=== PATIENT | female | born 1965 | race Caucasian/White ===

== ENCOUNTER 2018-11-06 13:42 | Emergency (ER) | payer OTHER ==
--- NOTE | 2018-11-06 14:10 | ED ---
Psychiatric Complaint - HPI Summary HPI Summary: This pt is a 53 y/o female presenting to [facility] via police on a 9.41 for depression. Pt reports she is having a "meltdown" and "wants to fade away." Pt went to the breakfast cook to get a biopsy from her left ear today at noon when she expressed SI. She endorses SI thoughts but denies SI plan or HI. Pt further states a "feeling of how to get away from the physical pain and mental anguish. " She notes she has been dealing with chronic pain and has not been able to get treated. Pt reports her father recently and has been dealing with her mom's depression as well. Denies any PMHx. Denies tobacco, drug, and alcohol use. - History Of Current Complaint Chief Complaint: EDMentalHealth Time Seen by Provider: 11/06/18 14:08 Hx Obtained From: Patient Hx Last Menstrual Period: 04/28/2014 Onset/Duration: Lasting Days, Still Present Timing: Days Severity Currently: Moderate Character: Depressed Aggravating Factor(s): Recent Stress Alleviating Factor(s): Nothing Associated Signs And Symptoms: Positive: Confused Has Suicidal: Reports: Thoughts. Denies: With A Plan Has Homicidal: Denies: Thoughts, With A Plan Recent Stressor(s): physical pain - Allergies/Home Medications Allergies/Adverse Reactions: Allergies Allergy/AdvReac Type Severity Reaction Status Date / Time No Known Allergies Allergy Verified 11/06/18 14:07 Home Medications: Home Medications Mirtazapine TAB* [Remeron TAB*] 45 mg PO BEDTIME 11/06/18 [History Confirmed ] busPIRone TAB* [Buspar TAB*] 5 mg PO DAILY 11/06/18 [History Confirmed 11/06/18] PMH/Surg Hx/FS Hx/Imm Hx Endocrine/Hematology History: Denies: Hx Diabetes, Hx Thyroid Disease Cardiovascular History: Denies: Hx Congestive Heart Failure, Hx Hypertension Respiratory History: Denies: Hx Asthma, Hx Chronic Obstructive Pulmonary Disease (COPD) GI History: Denies: Hx Ulcer - Surgical History Surgery Procedure, Year, and Place: Breast augmentation in the 80s. Infectious Disease History: No Infectious Disease History: Denies: Hx Hepatitis, Hx Human Immunodeficiency Virus (HIV), Traveled Outside the [place] in Last 30 Days - Family History Family History: Depression. Brother with mental illness. - Social History Alcohol Use: Rare Substance Use Type: Reports: None Smoking Status (MU): Never Smoked Tobacco Review of Systems Negative: Fever, Chills Cardiovascular: Negative Respiratory: Negative Gastrointestinal: Negative Genitourinary: Negative Psychological: Other - POS: SI thoughts Positive: Depressed. Negative: Other - NEG: SI plan, HI All Other Systems Reviewed And Are Negative: Yes Physical Exam - Summary Physical Exam Summary: VITAL SIGNS: Reviewed. GENERAL: Patient is a well-developed and nourished female. Patient is not in any acute respiratory distress. HEAD AND FACE: No signs of trauma. No ecchymosis, hematomas or skull depressions. No sinus tenderness. EYES: PERRLA, EOMI x 2, No injected conjunctiva, no nystagmus. EARS: Hearing grossly intact. Ear canals and tympanic membranes are within normal limits. MOUTH: Oropharynx within normal limits. NECK: Supple, trachea is midline, no adenopathy, no JVD, no carotid bruit, no c- spine tenderness, neck with full ROM. CHEST: Symmetric, no tenderness at palpation LUNGS: Clear to auscultation bilaterally. No wheezing or crackles. CVS: Regular rate and rhythm, S1 and S2 present, no murmurs or gallops appreciated. ABDOMEN: Soft, non-tender. No signs of distention. No rebound, no guarding, and no masses palpated. Bowel sounds are normal. EXTREMITIES: FROM in all major joints, no edema, no cyanosis or clubbing. NEURO: Alert and oriented x 3. No acute neurological deficits. Speech is normal and follows commands. SKIN: Dry and warm Triage Information Reviewed: Yes Vital Signs On Initial Exam: Initial Vitals Temp Pulse Resp BP Pulse Ox 98.3 F 89 16 131/83 99 11/06/18 14:00 11/06/18 14:00 11/06/18 14:00 11/06/18 14:00 11/06/18 14:00 Vital Signs Reviewed: Yes Diagnostics - Vital Signs Vital Signs Temp Pulse Resp BP Pulse Ox 11/06/18 14:00 98.3 F 89 16 131/83 99 - Laboratory Result Diagrams: 11/06/18 14:27 11/06/18 14:27 Lab Statement: Any lab studies that have been ordered have been reviewed, and results considered in the medical decision making process. Re-Evaluation - Re-Evaluation First Eval Re-Evaluation Time: 14:19 Comment: Pt is medically cleared. Course/Dx - Course Assessment/Plan: Pt is a 53 y/o female presenting to [facility] via police on a 9.41 for depression. Pt reports she is having a "meltdown" and "wants to fade away." Pt went to the breakfast cook to get a biopsy from her left ear today at noon when she expressed SI. She endorses SI thoughts but denies SI plan or HI. Pt further states a "feeling of how to get away from the physical pain and mental anguish." She notes she has been dealing with chronic pain and has not been able to get treated. Pt reports her father recently and has been dealing with her mom's depression as well. Denies any PMHx. Test results without any significant abnormalities. Pt is alert and oriented x3. She is hemodynamically stable. Pt is medically cleared. She is waiting for a mental health evaluation. MHE is still pending, therefore pt will be signed out to Dr. Gustafson. - Differential Dx/Clinical Impression Provider Diagnosis: Depression Discharge - Sign-Out/Discharge Documenting (check all that apply): Sign-Out Patient Signing out patient TO: Pete Gustafson - pending MHE - Discharge Plan Condition: Stable Referrals: Antionette Vogel MD [Primary Care Provider] - - Attestation Statements Document Initiated by Scribe: Yes Documenting Scribe: Jami Abarca Provider For Whom Scribe is Documenting (Include Credential): Andrew Flores MD Scribe Attestation: I, Jami Abarca, scribed for Andrew Flores MD on 11/06/18 at 1856. Status of Scribe Document: Ready
--- OUTSIDE RECORDS SUMMARY | 2018-11-06 14:32 | XMS REPORT | Continuity of Care Document ---
:1965 External Reference #:[id number] Author Name Ozziemiller Keisha Care Team Providers Name Role Phone Antionette Vogel MD Primary Care Physician Unavailable Payers Type Date Identification Numbers Payment Provider Subscriber Policy Number: [id number] Alvin Mane Group Number: [id number] [address] PayID: [id number] [place] [address] Advance Directives Description No Information Available Problems Date Description Provider Status Onset: 10/17/2014 Subjective tinnitus Lupe Parry M.D. 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 Tobacco Use Start: Unknown Never Smoked Cigarettes Smoking Status Reviewed: 10/19/18 Never Smoked Cigarettes ETOH Use Rarely consumes wine Tobacco Use Start: Unknown End: Patient is a former Unknown smoker Exercise Exercises regularly Type/Frequency Exercise walks, yoga Type/Frequency Allergies, Adverse Reactions, Alerts Description No Known Drug Allergies Medications Medication Date Status Form Strength Qnty SIG Indications Ordering Provider Cephalexin 10/19/20 Hx Tablets 500mg 21tabs one three L08.9 Kaylee 18 - times Varn, N.P. 10/26/19 daily for 19 7 days Mirtazapine Active Tablets 45mg 90tabs 1 by Antionette 00 mouth Vogel, every day M.D. Fish Oil Active Capsules 1 -2 by Unknown 00 mouth every day Advil Active Capsules 200mg 200caps as needed Unknown 00 Immunizations CPT Code Status Date Vaccine Lot # [id number] Refused 09/25/2017 Influenza Virus Vaccine, Quadrivalent, Split, Preservative Free Vital Signs Date Vital Result Comment 10/19/2018 3:33pm Height 61.9 inches 5'1.90" Weight 115.12 lb Heart Rate 106 /min BP Systolic 142 mmHg BP Diastolic 94 mmHg Body Temperature 98.6 F O2 % BldC Oximetry 100 % BMI (Body Mass Index) 21.1 kg/m2 09/25/2017 11:11am Height 61.9 inches 5'1.90" Weight 117.12 lb Heart Rate 76 /min BP Systolic Sitting 118 mmHg BP Diastolic Sitting 82 mmHg Body Temperature 98.2 F O2 % BldC Oximetry 98 % BMI (Body Mass Index) 21.5 kg/m2 12/28/2016 1:43pm Weight 122.38 lb Heart Rate 76 /min BP Systolic Sitting 104 mmHg BP Diastolic Sitting 58 mmHg Body Temperature 98.6 F O2 % BldC Oximetry 99 % 03/15/2016 2:56pm Height 61.50 inches 5'1.50" Weight 119.00 lb Heart Rate 85 /min BP Systolic Sitting 126 mmHg BP Diastolic Sitting 78 mmHg Body Temperature 98.7 F O2 % BldC Oximetry 99 % BMI (Body Mass Index) 22.1 kg/m2 09/30/2014 2:19pm Height 61.50 inches 5'1.50" Weight 120.00 lb Heart Rate 72 /min BP Systolic Sitting 124 mmHg BP Diastolic Sitting 76 mmHg BMI (Body Mass Index) 22.3 kg/m2 Results Test Date Facility Test Result H/L Range Note Lipid Profile 03/30/2017 [facility] Triglycerides 93 mg/dL N 1 (Trig/Chol/HDL) [address] [place] [address] [phone] Cholesterol 218 mg/dL N 2 HDL Cholesterol 59.4 mg/dL N 3 LDL Cholesterol 140 mg/dL N 4 Laboratory test 03/30/2017 [facility] TSH (Thyroid 2.45 mcIU/mL N 0.34-5.60 [address] Stim Horm) [place] [address] [phone] Laboratory test 03/15/2016 [facility] Cytology SEE RESULT [address] [place] [address] [phone] HPV Rna Ww/Reflex Genotype Negative N Negative 7 Lipid Profile 03/08/2016 [facility] Triglycerides 95 mg/dL N 8 (Trig/Chol/HDL) [address] [place] [address] [phone] Cholesterol 227 mg/dL N 9 HDL Cholesterol 65.4 mg/dL N 10 LDL Cholesterol 143 mg/dL N 11 Comp Metabolic Panel 03/08/2016 [facility] Sodium 138 mmol/L N 133-[address] [place] [address] [phone] Potassium 3.9 mmol/L N 3.5-5.0 Chloride 104 mmol/L N 101-111 Co2 Carbon Dioxide 30 mmol/L N 22-32 Anion Gap 4 mmol/L N 2-11 Glucose 85 mg/dL N 70-100 Blood Urea Nitrogen 11 mg/dL N 6-24 Creatinine 0.77 mg/dL N 0.51-0.95 BUN/Creatinine Ratio 14.3 N 8-20 Calcium 9.2 mg/dL N 8.6-10.3 Total Protein 6.5 g/dL N 6.4-8.9 Albumin 4.2 g/dL N 3.2-5.2 Globulin 2.3 g/dL N 2-4 Albumin/Globulin Ratio 1.8 N 1-3 Total Bilirubin 0.50 mg/dL N 0.2-1.0 Alkaline Phosphatase 44 U/L N 34-104 Alt 12 U/L N 7-52 Ast 12 U/L Low 13-39 Egfr Non- 79.7 N >60 Egfr 102.5 N >60 12 1 Desirable <150 Borderline high 150-199 High 200-499 Very High >500 2 Desirable <200 Borderline high 200-239 High >239 3 Low <40 Desirable: 40-60 High: >60 4 Desirable: <100 mg/dL Near Optimal: 100-129 mg/dL Borderline High: 130-159 mg/dL High: 160-189 mg/dL Very High: >189 mg/dL 5 FASTING 10 HOUR 6 SEE RESULT BELOW Name: ROSALIND MANE : [address]: Lupe Parry MD Acct: [id number] Unit: [id number] AGE: 51 Location: [facility] Re03/15/16 SEX: F Status: REG REF SPEC: [id number] PRUDENCIO: 03/15/16-[address]: Lupe Parry MD REQ: [id number] RECD: 03/16/16 STATUS: SOUT _ ORDERED: IMAGE ANALYSIS, HPV/Thin Prep, HPV 16/18 GENE COMMENTS: [id number] FINAL DIAGNOSIS Negative for Intraepithelial lesion or Malignancy A. Ectocervical/Endocervical Specimen Adequacy: Satisfactory of evaluation Transformation zone component identified Patient Information: HPV: High risk HPV RNA testing regardless of pap results. HPV 16/18 Genotype Reflex Actual Specimen Date: 03/15/16 Post Menopausal?: N Previous Abnormal Pap Smears?:N Date Time Test Result Flag (u) Normal Range 03/15/16 1601 HPV RNA RFLX GE Negative Negative The high-risk HPV types detected by the assay include: 16, 18, 31, 33, 35, 39, 45, 51, 52, 56, 58, 59, 66, and 68. Signed (signature on file) EMMANUEL Lynch (ASCP) 03/17 1519 This Pap test was evaluated with the assistance of the Renew FibrePrep Test Imaging System. Due to cytologic findings at the watershed program manager microscope, comprehensive manual rescreening by a Circular Shear Operator may be required. The Pap Smear is a screening test designed to aid in the detection of premalignant and malignant conditions of the uterine cervix. It is not a diagnostic procedure and should not be used as the sole means of detecting cervical cancer. Both false- positive and false- negative reports do occur. Depending on your risk status, a Pap smear should be obtained and evaluated every 1-3 years. END OF REPORT * ML=Testing performed at Main Lab DEPARTMENT OF PATHOLOGY, [address] [place] [address] Victor Manuel Uriarte M.D. Director [facility] # [id number] 7 The high-risk HPV types detected by the assay include: 16, 18, 31, 33, 35, 39, 45, 51, 52, 56, 58, 59, 66, and 68. 8 Desirable <150 Borderline high 150-199 High 200-499 Very High >500 9 Desirable <200 Borderline high 200-239 High >239 10 Low <40 Desirable: 40-60 High: >60 11 Desirable: <100 mg/dL Near Optimal: 100-129 mg/dL Borderline High: 130-159 mg/dL High: 160-189 mg/dL Very High: >189 mg/dL 12 Because ethnic data is not always readily available, this report includes an eGFR for both -Americans and non- Americans. The National Kidney Disease Education Program (NKDEP) does not endorse the use of the MDRD equation for patients that are not between the ages of 18 and 70, are , have extremes of body size, muscle mass, or nutritional status, or are non- or non-. According to the National Kidney Foundation, irrespective of diagnosis, the stage of the disease is based on the level of kidney function: Stage Description GFR(mL/min/1.73 m(2)) 1 Kidney damage with normal or decreased GFR 90 2 Kidney damage with mild decrease in GFR 60-89 3 Moderate decrease in GFR 30-59 4 Severe decrease in GFR 15-29 5 Kidney failure <15 (or dialysis) Procedures Date Code Description Status 03/22/2017 [id number] Mammogram Completed 10/23/2016 [id number] Colonoscopy Completed 10/23/2015 [id number] Mammogram Completed Encounters Type Date Location Provider Dx Diagnosis Office Visit 09/25/2017 [facility] Antionette Vogel, Z00.00 Encntr for 11:10a Medicine - [place] general adult [place] medical exam w/o abnormal findings F32.89 Other specified depressive episodes L57.0 Actinic keratosis Z12.11 Encounter for screening for malignant neoplasm of colon Office Visit 12/28/2016 1:40p [facility] Antionette F32.89 Other specified Louis - [place] Vogel depressive [place] episodes E78.5 Hyperlipidemia, unspecified Z12.39 Encounter for oth screening for malignant neoplasm of breast Office Visit 03/15/2016 3:00p [facility] Lupe Parry, Z00.00 Encntr for Louis - [place] general adult [place] medical exam w/o abnormal findings Z12.31 Encntr screen mammogram for malignant neoplasm of breast Z12.4 Encounter for screening for malignant neoplasm of cervix E78.5 Hyperlipidemia, unspecified R53.83 Other fatigue I78.1 Nevus, non-neoplastic Office Visit 09/30/2014 2:00p [facility] Lupe Parry, 388.31 Tinnitus Medicine - [place] Subjective [place] V18.19 Family HX Of Other Endocrine And Metabolic Diseases V17.49 Family HX Of Other Cardiovascular Diseases Plan of Treatment Future Appointment(s):10/22/2018 11:50 am - Antionette Vogel M.D. at [facility] Internal Medicine - Ufnurymlm92/27/2019 11:10 am - Antionette Vogel M.D. at [facility] Internal Medicine - Skwyihxym18/28/2018 - Kaylee Ibarra N.P.F32.9 Major depressive disorder, single episode, unspecifiedComments:For your depression: I think you will benefit from counseling. to help you with your anxiety you might consider taking Buspar. This is not a controlled substance, but could be helpful.Referral:Winter Pal LCSW, Social WorkerFollow up:F/U with Dr Vogel on MihrbnC84.4 Disappearance and of family cgjdkoB96.9 Local infection of the skin and subcutaneous tissue, unspeciNew Medication:Cephalexin 500 mg - one three times daily for 7 daysComments:Your left ear looks mildly infected. I have prescribed an antibiotic Cephalexin 500 mg. Take 1 tablet, 3 times daily, for 7 days. You may find applying cool compresses helpful.Referral:Mckayla Galicia MD, Dermatology
--- OUTSIDE RECORDS SUMMARY | 2018-11-06 14:32 | XMS REPORT | Continuity of Care Document ---
:1965 External Reference #:[id number] Author Name Ozziemiller Keisha Care Team Providers Name Role Phone Antionette Vogel MD Primary Care Physician Unavailable Payers Type Date Identification Numbers Payment Provider Subscriber Policy Number: [id number] Alvin Mane Group Number: [id number] [address] PayID: [id number] [place] [address] Advance Directives Description No Information Available Problems Date Description Provider Status Onset: 10/17/2014 Subjective tinnitus Lupe Parry M.D. 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 Tobacco Use Start: Unknown Never Smoked Cigarettes Smoking Status Reviewed: 10/22/18 Never Smoked Cigarettes ETOH Use Rarely consumes wine Tobacco Use Start: Unknown End: Patient is a former Unknown smoker Exercise Exercises regularly Type/Frequency Exercise walks, yoga Type/Frequency Allergies, Adverse Reactions, Alerts Description No Known Drug Allergies Medications Medication Date Status Form Strength Qnty SIG Indications Ordering Provider Buspirone HCL Active Tablets 5mg 30tabs once a day F32.9 Antionette 018 as needed jamaica Vogel M.D. anxiety Cephalexin Hx Tablets 500mg 21tabs one three L08.9 Kaylee 018 - times Varn, N.P. daily for 019 7 days Mirtazapine 0 Active Tablets 45mg 90tabs 1 by mouth Antionette 000 every day Ashly Vogel Advil Active Capsules 200mg 200caps as needed Unknown 000 Fish Oil Hx Capsules 1 -2 by Unknown 000 - mouth every day 018 Immunizations CPT Code Status Date Vaccine Lot # [id number] Refused 09/25/2017 Influenza Virus Vaccine, Quadrivalent, Split, Preservative Free Vital Signs Date Vital Result Comment 10/22/2018 11:37am Height 61.9 inches 5'1.90" Weight 119.00 lb Heart Rate 82 /min BP Systolic Sitting 120 mmHg BP Diastolic Sitting 76 mmHg O2 % BldC Oximetry 99 % BMI (Body Mass Index) 21.8 kg/m2 10/19/2018 3:33pm Height 61.9 inches 5'1.90" Weight [...] Result H/L Range Note Lipid Profile 03/30/2017 [facility] Triglycerides 93 mg/dL N 1 (Trig/Chol/HDL) [address] [place] [address] [phone] Cholesterol 218 mg/dL N 2 HDL Cholesterol 59.4 mg/dL N 3 LDL Cholesterol 140 mg/dL N 4 Laboratory test 03/30/2017 [facility] TSH (Thyroid 2.45 mcIU/mL N 0.34-5.60 [address] Stim Horm) [place] [address] [phone] Laboratory test 03/15/2016 [facility] Cytology SEE RESULT [address] [address] [phone] HPV Rna Ww/Reflex Genotype Negative N Negative 7 Lipid Profile 03/08/2016 [facility] Triglycerides 95 mg/dL N 8 (Trig/Chol/HDL) [address] [place] [address] [phone] Cholesterol 227 mg/dL N 9 HDL Cholesterol 65.4 mg/dL N 10 LDL Cholesterol 143 mg/dL N 11 Comp Metabolic Panel 03/08/2016 [facility] Sodium 138 mmol/L N 133-[address] [place] [address] [phone] Potassium 3.9 mmol/L N 3.5-5.0 Chloride 104 [...] [address]: Lupe Parry MD Acct: [id number] Unit: [id number] AGE: 51 Location: [facility] Re03/15/16 SEX: F Status: REG REF SPEC: [id number] PRUDENCIO: 03/15/16-1601 [facility] DR: Lupe Parry MD REQ: [id number] RECD: 03/16/16 STATUS: SOUT _ ORDERED: IMAGE ANALYSIS, HPV/Thin Prep, HPV 16/18 GENE COMMENTS: [id number] FINAL DIAGNOSIS Negative for Intraepithelial lesion or [...] 68. Signed (signature on file) EMMANUEL Lynch (ASC) 03/17 9899 This Pap test was evaluated with the assistance of the Ranovus Test Imaging System. Due to cytologic findings at the unit support representative microscope, comprehensive manual rescreening by a .Net Programmer may be required. The Pap Smear is [...] performed at Main Lab DEPARTMENT OF PATHOLOGY, [address] [place] [address] Victor Manuel Uriarte M.D. Director [facility] # [id number] 7 The high-risk HPV types detected by [...] dialysis) Procedures Date Code Description Status 03/22/2017 [id number] Mammogram Completed 10/23/2016 [id number] Colonoscopy Completed 10/23/2015 [id number] Mammogram Completed Encounters Type Date Location Provider Dx Diagnosis Office Visit 09/25/2017 [facility] Antionette Vogel, Z00.00 Encntr for 11:10a Medicine - [place] general adult [place] medical exam w/o abnormal findings F32.89 Other specified depressive episodes L57.0 Actinic keratosis Z12.11 Encounter for screening for malignant neoplasm of colon Office Visit 12/28/2016 1:40p [facility] F32.89 Other specified Medicine - [place] Vogel depressive [place] episodes E78.5 Hyperlipidemia, unspecified Z12.39 Encounter for oth screening for malignant neoplasm of breast Office Visit 03/15/2016 3:00p [facility] Internal Lupe Parry, Z00.00 Encntr for Medicine - [place] general adult [place] medical exam w/o abnormal findings Z12.31 Encntr screen mammogram for malignant neoplasm of breast Z12.4 Encounter for screening for malignant neoplasm of cervix E78.5 Hyperlipidemia, unspecified R53.83 Other fatigue I78.1 Nevus, non-neoplastic Office Visit 09/30/2014 2:00p [facility] Internal Lupe Parry, 388.31 Tinnitus Medicine - [place] Subjective [place] V18.19 Family HX Of Other Endocrine And Metabolic Diseases V17.49 Family HX Of Other Cardiovascular Diseases Plan of Treatment Future Appointment(s):11/26/2018 1:20 pm - Antionette Vogel M.D. at [facility] Medicine - Dimltctfm12/16/2019 2:15 pm - Winter Pal LCSW at [facility] Internal Medicine - Uelofwzrr99/27/2019 11:10 am - Antionette Vogel M.D. at [facility] Medicine [facility]10/22/2018 - Antionette Vogel M.D.F32.9 Major depressive disorder, single episode, unspecifiedNew Medication:Buspirone HCL 5 mg - once a day as needed for anxietyComments:advised counselling is helpful, do something for yourself only once a week, regular exercise also helps with mood discussed adding Bupar for anxiety and moodN95.1 Menopausal and female climacteric pnxqgtZ67.0 Actinic keratosisComments:please see the enginehouse brakeman as planned you can reduce the antibiotic to twice a dayH61.22 Impacted cerumen, left earComments:you can try the debrox to help soften the wax in the ear and then see an ENT
[2018-11-06 14:38] LABS: ABS Basophils 0 10^3/ul (0-0.2); ABS Eosinophils 0 10^3/ul (0-0.6); ABS Lymphocytes 1.3 10^3/ul (1.0-4.8); ABS Monocytes 0.3 10^3/ul (0-0.8); ABS Neutrophils 6.9 10^3/ul (1.5-7.7); ABS Nucleated RBC 0 10^3/ul; Eosinophil % 0.2 %; Hematocrit 45 % (35-47); Hemoglobin 15.4 g/dl (12.0-16.0); Lymphocyte % 15.5 %; Mean Corpuscular HGB Conc 34 g/dl (31-36); Mean Corpuscular Hemoglobin 31 pg (27-31); Mean Corpuscular Volume 90 fL (80-97); Mean Platelet Volume 8.6 fL (7.4-10.4); Nucleated Red Blood Cells % 0.1; Platelet Count 283 10^3/ul (150-450); Red Blood Count 5.01 10^6/ul (4.00-5.40); Red Cell Distribution Width 13 % (10.5-15); White Blood Count 8.7 10^3/ul (3.5-10.8)
[2018-11-06 14:54] LABS: ALT 11 U/L (7-52); AST 13 U/L (13-39); Albumin 4.5 g/dL (3.2-5.2); Albumin/Globulin Ratio 1.8 (1-3); Alkaline Phosphatase 52 U/L (34-104); Anion Gap 7 mmol/L (2-11); BUN/Creatinine Ratio 13.2 (8-20); Blood Urea Nitrogen 10 mg/dL (6-24); CO2 Carbon Dioxide 25 mmol/L (22-32); Calcium 9.1 mg/dL (8.6-10.3); Chloride 105 mmol/L (101-111); EGFR Non-African American 80.2 (>60); Globulin 2.5 g/dL (2-4); Glucose 112 mg/dL (70-100); Potassium 3.8 mmol/L (3.5-5.0); Sodium 137 mmol/L (135-145)
[2018-11-06 15:13] LABS: Urine Appearance Clear; Urine Bacteria Absent (Absent); Urine Bilirubin Negative (Negative); Urine Blood 1+ (Negative); Urine Color Yellow; Urine Glucose Negative (Negative); Urine Ketones 1+ (Negative); Urine Nitrite Negative (Negative); Urine Protein Negative (Negative); Urine Red Blood Cell Trace(0-2/hpf) (Absent); Urine Specific Gravity 1.013 (1.010-1.030); Urine Urobilinogen Negative (Negative); Urine White Blood Cell Trace(0-5/hpf) (Absent)
[2018-11-06 15:33] LABS: Acetaminophen < 15 mcg/mL; Alcohol < 10 mg/dL (<10); Salicylate < 2.50 mg/dL (<30)
[2018-11-06 15:35] LABS: Barbiturates Urine Screen None Detected (None Detect); Benzodiazepine Urine Screen None Detected (None Detect); Urine Cannabinoids Screen None Detected (None Detect)
[2018-11-06] MEDS ORDERED: Ibuprofen TAB* 600 MG PO ONE (16:18)
[2018-11-06] MEDS ORDERED: Ibuprofen TAB* 200 MG PO ONE (16:22)
[2018-11-06] MEDS ORDERED: Mirtazapine TAB* 15 MG PO ONE (18:48)
--- NOTE | 2018-11-06 19:08 | ED ---
Progress - Progress Note Progress Note: This patient was signed out from Dr. Flores to Dr. Gustafson upon shift change at 19: 00 11/06/18 pending MHE. This patient is on a mental health hold in order to see psychiatry the morning of 11/07/18. The patient will be signed out to Dr. Flores upon shift change at 07:00 11/07/18 pending MHE. - Consult/PCP Time Called: 17:11 Re-Evaluation - Re-Evaluation First Eval Re-Evaluation Time: 14:19 Comment: Pt is medically cleared. Course/Dx - Course Course Of Treatment: This patient was signed out from Dr. Flores to Dr. Gustafson upon shift change at 19:00 11/06/18 pending MHE. This patient is on a mental health hold in order to see psychiatry the morning of 11/07/18. The patient will be signed out to Dr. Flores upon shift change at 07:00 11/07/18 pending MHE. - Diagnoses Provider Diagnoses: Depression Discharge - Sign-Out/Discharge Documenting (check all that apply): Sign-Out Patient, Receiving Sign-Out Signing out patient TO: Andrew Flores - pending MHE Receiving patient FROM: Andrew Flores - Discharge Plan Condition: Stable Referrals: Antionette Vogel MD [Primary Care Provider] - - Billing Disposition and Condition Condition: STABLE - Attestation Statements Document Initiated by Scribe: Yes Documenting Scribe: Zak Romano Provider For Whom Scribe is Documenting (Include Credential): Pete Gustafson MD Scribe Attestation: I, Zak Romano, scribed for Pete Gustafson MD on 11/07/18 at 0613. Scribe Documentation Reviewed: Yes Provider Attestation: The documentation as recorded by the Zak mckeon accurately reflects the service I personally performed and the decisions made by me, Pete Gustafson MD Status of Scribe Document: Viewed
--- NOTE | 2018-11-07 07:03 | ED ---
Progress - Progress Note Progress Note: This patient was received from Dr. Gustafson at shift change pending mental health evaluation. 0925: Per health information tech: luis Gaines, approved pt for discharge home. - Consult/PCP Time Called: 17:11 Course/Dx - Course Course Of Treatment: This patient was received from Dr. Gustafson at shift change pending mental health evaluation. 0925: Per health information tech: luis Gaines, approved pt for discharge home, she is scheduled for therapy later today. Dx: Unspecified depressive disorder. - Diagnoses Provider Diagnoses: Depressive disorder Discharge - Sign-Out/Discharge Documenting (check all that apply): Patient Departure - D/C, Receiving Sign-Out Receiving patient FROM: Pete Gustafson - pending MHE - Discharge Plan Condition: Stable Disposition: HOME Referrals: Antionette Vogel MD [Primary Care Provider] - - Attestation Statements Document Initiated by Scribe: Yes Documenting Scribe: Be Cazares Provider For Whom Scribe is Documenting (Include Credential): Dr. Andrew Flores MD Scribe Attestation: I, Be Cazares, scribed for Dr. Andrew Flores MD on 11/07/18 at 0925. Status of Scribe Document: Ready
[2018-11-07 10:16] VITALS: BP 118/71
== END 2018-11-07 10:12 | disposition home or self-care (01) ==
LOC: ED 13:42
DX: F32.9 Major depressive disorder, single episode, unspecified (principal)
CPT/HCPCS: 36415; 80053; 80307; 80320; 80329; 81003; 81015; 84443; 85025; 87086; 99284; A9270-GY; G0480